=== PATIENT | female | born 1955 | race Caucasian/White ===

== ENCOUNTER 2020-03-15 15:24 | Emergency (ER) | payer MEDICARE, OTHER ==
[2020-03-15] MEDS ORDERED: ONDANSETRON 4 MG/2 ML VIAL IVP STA (15:40)
[2020-03-15] MEDS ORDERED: MORPHINE 2 MG/ML CARPUJECT IVP STA ×2 (15:40→16:35)
--- NOTE | 2020-03-15 15:40 | ED Physician Documentation ---
PD HPI ABD PAIN - Stated complaint Stated Complaint: ABD PX - History obtained from History obtained from: Patient - History of Present Illness Timing - onset: Today - Additional information Additional information: This is a very healthy 64-year-old woman with history of remote breast cancer but otherwise healthy. No history of abdominal surgeries. Last colonoscopy per her 2 years ago without pertinent positive findings. She developed lower abdominal pain this morning which at times has been quite severe and associated with nausea. She thought she might be constipated despite having a normal bowel movement yesterday and tried drinking water, going for a walk, and trying a laxative without any relief. She developed chills. What ever this is, she is never had it before. Nothing makes it better although it got better on its own a little bit prior to arrival. Review of Systems Ten Systems: 10 systems reviewed and negative Constitutional: denies: Fever, Chills Nose: reports: Reviewed and negative Cardiac: reports: Reviewed and negative Respiratory: reports: Reviewed and negative PD PAST MEDICAL HISTORY - Present Medications Home Medications: Ambulatory Orders Medication Instructions Recorded Confirmed No Known Home Medications 03/15/20 03/15/20 - Allergies Allergies/Adverse Reactions: Allergies Allergy/AdvReac Type Severity Reaction Status Date / Time codeine Allergy Nausea Verified 03/15/20 15:44 PD ED PE NORMAL - Vitals Vital signs reviewed: Yes - General General: Alert and oriented X 3, No acute distress - HEENT HEENT: PERRL, EOMI - Neck Neck: Supple, no meningeal sign, No bony TTP - Cardiac Cardiac: RRR, No murmur - Respiratory Respiratory: No respiratory distress, Clear bilaterally - Abdomen Abdomen: Other (Hyperactive bowel tones, mild lower abdominal tenderness without surgical signs. Does not seem to lateralize much, may be right worse than left slightly.) - Back Back: No CVA TTP, No spinal TTP - Derm Derm: Normal color, Warm and dry - Extremities Extremities: No edema, No calf tenderness / cord - Neuro Neuro: Alert and oriented X 3, Normal speech Results - Vitals Vitals: Vital Signs - 24 hr 03/15/20 03/15/20 15:41 17:11 Temperature 37.0 C 36.8 C Heart Rate 65 55 L Respiratory 16 16 Rate Blood Pressure 168/90 H 155/73 H O2 Saturation 99 99 Oxygen O2 Source Room air - Labs Labs: Laboratory Tests 03/15/20 03/15/2021 15:50 15:50 17:01 WBC 8.8 RBC 4.51 Hgb 13.6 Hct 41.6 MCV 92.2 MCH 30.2 MCHC 32.7 RDW 13.0 Plt Count 272 MPV 9.7 Neut # (Auto) 6.8 H Lymph # (Auto) 1.4 L [place] # (Auto) 0.5 Eos # (Auto) 0.0 Baso # (Auto) 0.1 Absolute Nucleated RBC 0.00 Nucleated RBC % 0.0 Sodium 137 Potassium 3.9 Chloride 100 L Carbon Dioxide 24 Anion Gap 13.0 BUN 12 Creatinine 0.7 Estimated GFR (MDRD) 84 L Glucose 121 H Calcium 9.5 Total Bilirubin 1.5 H AST 31 ALT 25 Alkaline Phosphatase 79 Total Protein 6.8 Albumin 4.5 Globulin 2.3 Albumin/Globulin Ratio 2.0 Lipase 51 Urine Color LT. YELLOW Urine Clarity CLEAR Urine pH 7.0 Ur Specific [place] <=1.005 Urine Protein NEGATIVE Urine Glucose (UA) NEGATIVE Urine Ketones NEGATIVE Urine Occult Blood NEGATIVE Urine Nitrite NEGATIVE Urine Bilirubin NEGATIVE Urine Urobilinogen 0.2 (NORMAL) Ur Leukocyte Esterase NEGATIVE Ur Microscopic Review NOT INDICATED Urine Culture Comments NOT INDICATED - Rads (name of study) CT A/P Radiology: EMP read contemporaneously (Appendix not confidently seen, but no sequelae a consistent with appendicitis. Moderate amount of colonic stool. Chronic appearing wedge deformities of T10 and T11, uterine fibroids, pelvic varices.) PD MEDICAL DECISION MAKING - ED course ED course: 64-year-old woman presents with acute lower abdominal pain. Differential diagnosis includes but is not limited to diverticulitis, appendicitis, UTI, vascular emergency. Work-up demonstrates a significant stool load but no other acute concerning findings on CAT scan. Labs are reassuring. Departure - Departure Disposition: 01 Home, Self Care Clinical Impression: Constipation Qualifiers: Constipation type: unspecified constipation type Qualified Code(s): K59.00 - Constipation, unspecified Abdominal pain Qualifiers: Abdominal location: lower abdomen, unspecified Qualified Code(s): R10.30 - Lower abdominal pain, unspecified Condition: Good Record reviewed to determine appropriate education?: Yes Instructions: ED Constipation, Abdominal Pain Comments: As discussed you were seen today for abdominal pain, despite my initial concerns, there is no evidence of appendicitis or diverticulitis. Return for new or worsening symptoms but I suspect after drinking the bottle of magnesium citrate your symptoms should suresh.
[2020-03-15] MEDS ORDERED: IOVERSOL 320 100 ML VIAL IVP ONE ×2 (15:58→17:21)
[2020-03-15 16:14] LABS: BASOPHILS # (AUTO) 0.1 10^3/uL (0.0-0.1); BASOPHILS % (AUTO) 0.6 %; EOSINOPHILS % (AUTO) 0.5 %; HGB - HEMOGLOBIN 13.6 g/dL (12.0-16.0); LYMPHOCYTES # (AUTO) 1.4 10^3/uL (1.5-3.5); LYMPHOCYTES % (AUTO) 15.8 %; MEAN CORPUSCULAR HEMOGLOBIN 30.2 pg (27.0-31.0); MEAN CORPUSCULAR HGB CONC 32.7 g/dL (32.0-36.0); MEAN CORPUSCULAR VOLUME 92.2 fL (81.0-99.0); MEAN PLATELET VOLUME 9.7 fL (7.9-10.8); MONOCYTES # (AUTO) 0.5 10^3/uL (0.0-1.0); MONOCYTES % (AUTO) 5.7 %; NEUTROPHILS # (AUTO) 6.8 10^3/uL (1.5-6.6); NEUTROPHILS % (AUTO) 77.2 %; PLT - PLATELET COUNT 272 10^3/uL (130-450); RED BLOOD COUNT 4.51 10^6/uL (4.20-5.40); WHITE BLOOD COUNT 8.8 x10^3/uL (4.8-10.8)
[2020-03-15 16:28] LABS: ALBUMIN 4.5 g/dL (3.2-5.5); BILIRUBIN,TOTAL 1.5 mg/dL (0.2-1.0); CALCIUM 9.5 mg/dL (8.5-10.3); CREATININE 0.7 mg/dL (0.4-1.0); TOTAL PROTEIN 6.8 g/dL (6.7-8.2)
[2020-03-15 17:06] LABS: BILIRUBIN,URINE NEGATIVE (NEGATIVE); GLUCOSE, URINE (UA) NEGATIVE (NEGATIVE); KETONES,URINE (UA) NEGATIVE (NEGATIVE); LEUKOCYTE ESTERASE, URINE NEGATIVE (NEGATIVE); NITRITE,URINE NEGATIVE (NEGATIVE); OCCULT BLOOD,URINE NEGATIVE (NEGATIVE); PROTEIN,URINE NEGATIVE (NEGATIVE); UROBILINOGEN,URINE 0.2 (NORMAL) E.U./dL (NORMAL)
--- NOTE | 2020-03-15 17:06 | CT Report ---
PROCEDURE: Abdomen/Pelvis W INDICATIONS: IV only, low abd pain CONTRAST: IV CONTRAST: Optiray 320 ml: 100 PO CONTRAST: *NO PO CONTRAST TECHNIQUE: After the administration of nonionic IV contrast, 5 mm thick sections acquired from the diaphragms to the symphysis. 5 mm thick coronal and sagittal reformats were acquired. For radiation dose reducti on, the following was used: automated exposure control, adjustment of mA and/or kV according to rosy ent size. COMPARISON: None. FINDINGS: Image quality: Excellent. ABDOMEN: Lung bases: Lung bases are clear. Heart size is normal. Right mastectomy changes can be seen. Solid organs: Liver and spleen are normal in size and enhancement. Gallbladder wall does not appear thickened. Biliary system is non dilated. Pancreas enhances normally. No adrenal nodules. Kidn eys demonstrate normal size and enhancement, without hydronephrosis. Peritoneum and bowel: In this patient with this given history, scrutiny is given to the appendix. No appendix can be seen, either normal or abnormal. No focal right lower quadrant inflammatory changes are seen. Bowel loops demonstrate normal wall thickness and caliber. No free fluid or air. There is a moderat e amount of stool seen within the colon. Nodes and vessels: No retroperitoneal or mesenteric adenopathy by size criteria. Aorta and inferior vena cava are normal in size. Atherosclerotic calcification is seen. Miscellaneous: No ventral hernias. PELVIS: Genitourinary: Bladder wall thickness is normal. Partially calcified uterine fibroids can be seen. Miscellaneous: No inguinal hernias or adenopathy. Prominent pelvic vessels can be seen, left more p rominent than right. Bones: No suspicious bony lesions. Mild, chronic appearing anterior wedge deformities are seen invo lving T10 and T11. No acute appearing vertebral body compression fractures. IMPRESSION: There is a moderate amount of stool seen within the colon. Please correlate with clinica l constipation. No appendix can be seen, either normal or abnormal. No focal right lower quadrant inflammatory change s are seen. Incidental note is made of: Right mastectomy Mild chronic appearing anterior wedge deformities of T10 and T11 Calcified uterine fibroids Likely pelvic varices Reviewed by: Jerry Jeong MD on 03/15/2020 4:05 PM [place] Approved by: Jerry Jeong MD on 03/15/2020 4:05 PM [place] Station ID: [id number]
[2020-03-15 17:08] LABS: CLARITY,URINE CLEAR (CLEAR)
[2020-03-15 17:12] VITALS: BP 155/73
[2020-03-15] MEDS ORDERED: MAGNESIUM CITRATE 296 ML BOTTLE PO STA (17:22)
== END 2020-03-15 17:30 | disposition home or self-care (01) ==
LOC: ED 15:24
DX: K59.00 Constipation, unspecified (principal)
CPT/HCPCS: 36415; 74177; 80053; 81003; 83690; 85025; 96374; 96376; 99284; A9270; Q9967; 81001; 87086

== ENCOUNTER 2022-03-23 15:13 | Outpatient (CLI) | payer MEDICARE ==
[2022-03-23 15:31] LABS: BASOPHILS # (AUTO) 0.1 10^3/uL (0.0-0.1); EOSINOPHILS # (AUTO) 0.1 10^3/uL (0.0-0.7); EOSINOPHILS % (AUTO) 1.5 %; HCT - HEMATOCRIT 40.4 % (37.0-47.0); HGB - HEMOGLOBIN 13.2 g/dL (12.0-16.0); LYMPHOCYTES # (AUTO) 2.1 10^3/uL (1.5-3.5); LYMPHOCYTES % (AUTO) 22.7 %; MEAN CORPUSCULAR HEMOGLOBIN 30.1 pg (27.0-31.0); MEAN CORPUSCULAR HGB CONC 32.7 g/dL (32.0-36.0); MEAN PLATELET VOLUME 9.5 fL (7.9-10.8); MONOCYTES # (AUTO) 0.6 10^3/uL (0.0-1.0); NEUTROPHILS # (AUTO) 6.4 10^3/uL (1.5-6.6); NEUTROPHILS % (AUTO) 68.6 %; PLT - PLATELET COUNT 355 10^3/uL (130-450); RED BLOOD COUNT 4.39 10^6/uL (4.20-5.40); RED CELL DISTRIBUTION WIDTH 12.8 % (12.0-15.0); WHITE BLOOD COUNT 9.3 x10^3/uL (4.8-10.8)
[2022-03-23 15:54] LABS: ALBUMIN 4.1 g/dL (3.2-5.5); ALBUMIN/GLOBULIN RATIO 1.6 (1.0-2.2); ALKALINE PHOSPHATASE 80 IU/L (42-121); ALT ALANINE AMINOTRANSFERASE 26 IU/L (10-60); AST ASPARTATE AMINOTRANSFERASE 33 IU/L (10-42); BILIRUBIN,TOTAL 1.1 mg/dL (0.2-1.0); BUN - BLOOD UREA NITROGEN 17 mg/dL (6-20); CALCIUM 9.1 mg/dL (8.5-10.3); CARBON DIOXIDE - CO2 23 mmol/L (21-32); CHLORIDE 101 mmol/L (101-111); CHOLESTEROL 195 mg/dL; CREATININE 0.8 mg/dL (0.4-1.0); GFR - MDRD 71 (>89); GLUCOSE 131 mg/dL (70-100); HDL CHOLESTEROL 66 mg/dL; LDL CHOLESTEROL,CALCULATED 117 mg/dL; LDL/HDL RATIO 1.8 (<4.4); POTASSIUM 3.7 mmol/L (3.5-5.0); SODIUM 136 mmol/L (135-145); TOTAL PROTEIN 6.7 g/dL (6.7-8.2); TRIGLYCERIDES 61 mg/dL; VLDL CHOLESTEROL 12 mg/dL
[2022-03-24 04:09] LABS: HCV AB <0.1 s/co ratio (0.0-0.9)
== END 2022-03-23 15:14 | disposition home or self-care (01) ==
LOC: MERGE 15:13 → LAB 15:13
PROVIDERS: ATTEND Nurse Practitioner
DX: Z01.84 Encounter for antibody response examination (principal); Z85.3 Personal history of malignant neoplasm of breast; Z51.81 Encounter for therapeutic drug level monitoring; Z13.220 Encounter for screening for lipoid disorders; Z90.10 Acquired absence of unspecified breast and nipple; Z92.21 Personal history of antineoplastic chemotherapy
CPT/HCPCS: 36415; 80053; 80061; 83721; 85025; 86803

== ENCOUNTER 2022-04-12 14:36 | Outpatient (CLI) | payer MEDICARE ==
--- NOTE | 2022-04-12 20:47 | DEXA Report ---
PROCEDURE: Dexa Spine and/or Hip INDICATIONS: POST MENOPAUSAL TECHNIQUE: Dual energy x-ray absorptiometry (DXA) was performed on a [employer] System. Regions measur ed are the AP Spine, femoral neck, and if needed forearm. COMPARISON: None. FINDINGS: Lumbar Spine: Bone Mineral Density 0.858 g/cm/cm, T score -2.7, osteoporosis Left Femoral Neck: Bone Mineral Density 0.672 g/cm/cm, T score -2.6, osteoporosis Left Hip: Bone Mineral Density 0.682 g/cm/cm, T score -2.6, osteoporosis (T score greater or equal to -1.0: NORMAL) (T score from -1.1 to -2.4: OSTEOPENIA) (T score less than or equal to -2.5 to: OSTEOPOROSIS) Impression: Osteoporosis. Patients with diagnosis of osteoporosis or osteopenia should have regular bone mineral density assess ment. For those eligible for Medicare, routine testing is allowed once every 2 years. Testing frequ ency can be increased for patients who have rapidly progressing disease or for those who are receivin g medical therapy to restore bone mass. Reviewed by: Mark Lemos MD on 04/12/2022 8:46 PM PST Approved by: Mark Lemos MD on 04/12/2022 8:46 PM PST Station ID: [id number]
== END 2022-04-12 14:37 | disposition home or self-care (01) ==
LOC: DI 14:36
PROVIDERS: ATTEND Nurse Practitioner
DX: Z78.0 Asymptomatic menopausal state (principal); M81.0 Age-related osteoporosis without current pathological fracture

== ENCOUNTER 2022-04-12 14:38 | Outpatient (CLI) | payer MEDICARE ==
--- NOTE | 2022-04-20 10:46 | Mammography Report ---
UNILATERAL LEFT DIGITAL SCREENING MAMMOGRAM 3D/2D: 04/12/2022 CLINICAL: Routine screening. Personal history of right breast cancer. No prior exams were available for comparison. There are scattered areas of fibroglandular density in the left breast (category b / 25%-50% glandula r tissue). No significant masses, calcifications, or other findings are seen in the breast. IMPRESSION: NEGATIVE There is no mammographic evidence of malignancy. A 1 year screening mammogram is recommended. This exam was interpreted at Station ID: [id number]. NOTE: For mammograms, a report in lay terms will be sent to the patient. Approximately 15% of breast malignancies will not be visualized mammographically. In the management of a palpable breast mass, a negative mammogram must not discourage biopsy of a clinically suspicious lesion. Electronically Signed By: Elsy lovelace/katie:04/19/2022 11:38:00 ACR BI-RADS Category 1: Negative [id number] PARENCHYMAL PATTERN: (A) - The breast(s) demonstrate(s) scattered fibroglandular densities. BI-RADS CATEGORY: (1) - 1 RECOMMENDATION: (ANNUAL) - Recommend routine annual screening mammography. [id number] 1 year screening LATERALITY: (B)
== END 2022-04-12 14:39 | disposition home or self-care (01) ==
LOC: DI 14:38
PROVIDERS: ATTEND Nurse Practitioner
DX: Z12.31 Encounter for screening mammogram for malignant neoplasm of breast (principal); Z85.3 Personal history of malignant neoplasm of breast; Z90.11 Acquired absence of right breast and nipple

== ENCOUNTER 2023-08-19 12:13 | Emergency (ER) | payer MEDICARE, OTHER ==
[2023-08-19 12:52] LABS: BASOPHILS % (AUTO) 0.3 %; EOSINOPHILS # (AUTO) 0.1 10^3/uL (0.0-0.7); HCT - HEMATOCRIT 44.1 % (37.0-47.0); HGB - HEMOGLOBIN 14.4 g/dL (12.0-16.0); LYMPHOCYTES # (AUTO) 1.4 10^3/uL (1.5-3.5); LYMPHOCYTES % (AUTO) 11.1 %; MEAN CORPUSCULAR HEMOGLOBIN 29.7 pg (27.0-31.0); MEAN CORPUSCULAR HGB CONC 32.7 g/dL (32.0-36.0); MEAN CORPUSCULAR VOLUME 90.9 fL (81.0-99.0); MEAN PLATELET VOLUME 9.5 fL (7.9-10.8); MONOCYTES # (AUTO) 0.7 10^3/uL (0.0-1.0); MONOCYTES % (AUTO) 5.3 %; NEUTROPHILS # (AUTO) 10.5 10^3/uL (1.5-6.6); NEUTROPHILS % (AUTO) 82.1 %; PLT - PLATELET COUNT 301 10^3/uL (130-450); RED BLOOD COUNT 4.85 10^6/uL (4.20-5.40); RED CELL DISTRIBUTION WIDTH 13.1 % (12.0-15.0); WHITE BLOOD COUNT 12.8 x10^3/uL (4.8-10.8)
[2023-08-19 13:09] LABS: ALBUMIN 4.6 g/dL (3.2-5.5); BILIRUBIN,TOTAL 1.5 mg/dL (0.2-1.0); CREATININE 0.8 mg/dL (0.6-1.3); POTASSIUM 3.9 mmol/L (3.5-4.5); TOTAL PROTEIN 6.9 g/dL (6.4-8.9)
[2023-08-19 13:13] LABS: TROPONIN I HIGH SENSITIVITY 4.3 ng/L (2.3-14.8)
--- NOTE | 2023-08-19 13:28 | ED Physician Documentation ---
PD HPI CHEST PAIN - Stated complaint Stated Complaint: HIGH BP READING/FEELING OFF - Chief complaint Chief Complaint: General - History obtained from History obtained from: Patient - History of Present Illness Timing - onset: How many hours ago (about 2-3 horus ago, was cleaning out garage and felt onset of abrupt feeling general weakness. No chest pain, nausea, headache, abd pain. Continued with weakness feeling (nonfocal) and went to lie down in bed. Still felt weak when got up. Took BP and noted it elevated at 170s systolic.), Today Timing - onset during: Light activity Timing - duration: Hours Timing - details: Abrupt onset, Still present (feels less weak enroute here. Had some tingling feeling left arm that hsas improved.) Quality: Pressure, Tightness. No: Sharp, Tearing Location: Left shoulder/arm Radiation: No: Jaw, Neck, Back Improved by: No: Rest Associated symptoms: General Weakness. No: Shortness of air, Diaphoresis, Nausea, Palpitations Similar symptoms before: Has not had sx before Review of Systems Constitutional: reports: Fatigue. 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 - Present Medications Home Medications: Ambulatory Orders Medication Instructions Recorded Confirmed No Known Home Medications 03/15/20 08/19/23 - Allergies Allergies/Adverse Reactions: Allergies Allergy/AdvReac Type Severity Reaction Status Date / Time codeine Allergy Nausea Verified 08/19/23 12:30 - Social History Does the pt smoke?: No Smoking Status: Never smoker Does the pt drink ETOH?: Yes Does the pt have substance abuse?: No PD ED PE NORMAL - Vitals Vital signs reviewed: Yes - General General: Alert and oriented X 3, No acute distress, Well developed/nourished - HEENT HEENT: Pharynx benign - Neck Neck: Supple, no meningeal sign, No adenopathy - Cardiac Cardiac: RRR, No murmur - Respiratory Respiratory: No respiratory distress, Clear bilaterally - Abdomen Abdomen: Soft, Non tender - Derm Derm: Normal color, Warm and dry - Extremities Extremities: Normal ROM s pain, No calf tenderness / cord - Neuro Neuro: Alert and oriented X 3, No motor deficit, No sensory deficit, Normal speech Results - Vitals Vitals: Oxygen O2 Source Room air - EKG (time done) 12:52 EKG releavant findings:: EKG personally interpreted by author of this note. Relevant findings are: Rate: Rate (enter#) (60) Rhythm: NSR [place]: Normal Intervals: Normal AR QRS: Normal Ischemia: Normal ST segments. No: ST elevation c/w ischemia, ST depression - Labs Labs: Laboratory Tests 08/19/23 08/19/23 12:48 12:48 WBC 12.8 H RBC 4.85 Hgb 14.4 Hct 44.1 MCV 90.9 MCH 29.7 MCHC 32.7 RDW 13.1 Plt Count 301 MPV 9.5 Neut # (Auto) 10.5 H Lymph # (Auto) 1.4 L [place] # (Auto) 0.7 Eos # (Auto) 0.1 Baso # (Auto) 0.0 Absolute Nucleated RBC 0.00 Nucleated RBC % 0.0 Sodium 138 Potassium 3.9 Chloride 106 Carbon Dioxide 24 Anion Gap 8.0 BUN 16 Creatinine 0.8 Estimated GFR (MDRD) 71 L Glucose 102 Calcium 10.0 Total Bilirubin 1.5 H AST 24 ALT 19 Alkaline Phosphatase 95 Troponin I High Sens 4.3 Total Protein 6.9 Albumin 4.6 Globulin 2.3 Albumin/Globulin Ratio 2.0 Lipase 39 - Rads (name of study) chest xray Relevant Findings:: Prelim report reviewed, EMP independent interpretation of test (No acute process) PD Medical Decision Making - ED course Complexity details: reviewed results, re-evaluated patient (BP has resolved to normal range without specific intervention. ), considered differential (she was concerned about heart related/NE given weakness, elevated BP and left arm tingling. BP at home was 170s systolic, which I do not feel likely to be causing hypertensive urgency. She has normal ECG and trop here and no clinical signs of CHF, PERC negative, and normal CXR. ), d/w patient Departure - Departure Disposition: 01 Home, Self Care Clinical Impression: Acute weakness, Ruled out for myocardial infarction, Elevated blood pressure reading Condition: Stable Record reviewed to determine appropriate education?: Yes Follow-Up: Ann Valentine ARNP [Primary Care Provider] - Comments: Your EKG does not show any signs of heart injury. You do have extra beats called PVCs at times. Your chest x-ray does not show any enlargement of the heart. The blood test called troponin is negative which rules out any current injury of the heart muscle/heart attack. It is unclear the cause of your symptoms of feeling weakness with the arm discomfort. See how you feel over the next day or 2 and if you develop any viral type illness and that could be more explanatory. Be sure to stay well- hydrated. It is good that you have not noticed any decrement in your exercise ability. If you were to notice any exertional related chest pain or shortness of breath or such then you do want a follow-up with your primary care for stress testing etc. Otherwise continuing normal activity if you felt feel well. We did other blood test that showed basic blood count and chemistry panel and no acute abnormalities there. Forms: PCP List Discharge Date/Time: 08/19/23 14:21
--- NOTE | 2023-08-19 14:13 | XRAY Report ---
PROCEDURE: Chest 1V INDICATIONS: Chest pain TECHNIQUE: One view of the chest was acquired. COMPARISON: None. FINDINGS: Surgical changes and devices: None. Lungs and pleura: No pleural effusions or pneumothorax. Lungs are clear. Mediastinum: Mediastinal contours appear normal. Heart size is normal. Bones and chest wall: No suspicious bony lesions. Overlying soft tissues appear unremarkable. IMPRESSION: No acute cardiopulmonary process. Reviewed by: Tracie Rangel MD, PhD on 08/19/2023 1:12 PM YASMIN Approved by: Tracie Rangel MD, PhD on 08/19/2023 1:12 PM [facility] Station ID: [id number]
[2023-08-19 14:32] VITALS: BP 153/89; O2SAT 99
== END 2023-08-19 14:21 | disposition home or self-care (01) ==
LOC: ED 12:13
DX: R03.0 Elevated blood-pressure reading, without diagnosis of hypertension (principal); R53.1 Weakness; I49.3 Ventricular premature depolarization; R94.31 Abnormal electrocardiogram [ECG] [EKG]
CPT/HCPCS: 36415; 80053; 83690; 84484; 85025; 93005; 99284

== ENCOUNTER 2023-09-05 17:27 | Outpatient (CLI) | payer MEDICARE, OTHER ==
[2023-09-05 18:10] LABS: CHOL/HDL RATIO 3.1 (<4.4); CHOLESTEROL 231 mg/dL; HDL CHOLESTEROL 75 mg/dL; LDL CHOLESTEROL,CALCULATED 138 mg/dL; LDL/HDL RATIO 1.8 (<4.4); TRIGLYCERIDES 90 mg/dL; VLDL CHOLESTEROL 18 mg/dL
[2023-09-05 18:23] LABS: THYROID STIMULATING HORMONE 0.98 uIU/mL (0.34-5.60)
== END 2023-09-05 17:28 | disposition home or self-care (01) ==
LOC: LAB 17:27
PROVIDERS: ATTEND Physician Assistant Medical
DX: R00.2 Palpitations (principal)
CPT/HCPCS: 36415; 80061; 83721; 84443

== ENCOUNTER 2023-09-07 15:16 | Outpatient (CLI) | payer MEDICARE, OTHER ==
[2023-09-07 15:25] LABS: BASOPHILS # (AUTO) 0.1 10^3/uL (0.0-0.1); BASOPHILS % (AUTO) 0.6 %; EOSINOPHILS # (AUTO) 0.1 10^3/uL (0.0-0.7); EOSINOPHILS % (AUTO) 1.5 %; HCT - HEMATOCRIT 39.2 % (37.0-47.0); HGB - HEMOGLOBIN 13.2 g/dL (12.0-16.0); LYMPHOCYTES # (AUTO) 1.3 10^3/uL (1.5-3.5); LYMPHOCYTES % (AUTO) 13.1 %; MEAN CORPUSCULAR HEMOGLOBIN 30.4 pg (27.0-31.0); MEAN CORPUSCULAR HGB CONC 33.7 g/dL (32.0-36.0); MEAN CORPUSCULAR VOLUME 90.3 fL (81.0-99.0); MEAN PLATELET VOLUME 9.6 fL (7.9-10.8); MONOCYTES # (AUTO) 0.8 10^3/uL (0.0-1.0); MONOCYTES % (AUTO) 8.4 %; NEUTROPHILS # (AUTO) 7.4 10^3/uL (1.5-6.6); NEUTROPHILS % (AUTO) 76.2 %; PLT - PLATELET COUNT 261 10^3/uL (130-450); RED BLOOD COUNT 4.34 10^6/uL (4.20-5.40); RED CELL DISTRIBUTION WIDTH 13.4 % (12.0-15.0); WHITE BLOOD COUNT 9.7 x10^3/uL (4.8-10.8)
== END 2023-09-07 15:17 | disposition home or self-care (01) ==
LOC: LAB 15:16
PROVIDERS: ATTEND Physician Assistant Medical
DX: R00.2 Palpitations (principal)
CPT/HCPCS: 36415; 85025